=== PATIENT | male | born 1945 | race Caucasian/White ===

== ENCOUNTER → 2017-06-05 | Outpatient (CLI) | payer OTHER ==
--- NOTE | 2017-06-13 09:21 | RSPPFT ---
DATE OF PROCEDURE: 06/05/17 COMMENTS: VOLUMES DYNAMIC: FVC normal; FEV1 mildly reduced. STATIC: RV severely increased; FRC moderately increased; TLC very mildly increased. FLOWS: FEV1% moderately reduced; FEF 25-75 severely reduced. DIFFUSION: Mildly reduced. FLOW VOLUME LOOP: Pattern of variable intrathoracic airways obstruction. IMPRESSION: Mild to moderate obstructive ventilator defect with reduction in diffusion and severe hyperinflation. Minimal improvement noted post-bronchodilator.
== END ==
LOC: PHRSP 07:34
PROVIDERS: ATTEND Internal Medicine
DX: J44.9 Chronic obstructive pulmonary disease, unspecified (principal); R06.02 Shortness of breath
CPT/HCPCS: 94060; 94620; 94726; 94729